=== PATIENT | female | born 1990 | race African-American/Black ===

== ENCOUNTER 2017-11-11 11:36 | Emergency (ER) | payer OTHER ==
[~2017-11-11] VITALS: Ht 149.9 cm; Wt 71.0 kg
[~2017-11-11 11:36] MED LIST: Z.0.NO CURRENT MEDS
[2017-11-11 11:40] VITALS: BP 125/91; PULSE 102; RESP 20; TEMP 98.5; O2SAT 100
[2017-11-11 12:47] LABS: BACTERIA, URINE OCC /hpf; BILIRUBIN, URINE NEG (NEG); BLOOD, URINE LARGE (NEG); GLUCOSE,URINE NEG (NEG); KETONE, URINE TRACE mg/dL (NEG); MUCUS URINE FEW /lpf (OCC); NITRITE,URINE NEG (NEG); PH, URINE 5.5 (5.0-8.5); SQUAMOUS EPITHELIAL CELL URINE 14 /hpf (0-5); URINE LEUKOCYTE ESTERASE MOD (NEG)
[2017-11-11 12:53] LABS: URINE COLOR RED (YELLW/STRAW)
[2017-11-11 13:01] LABS: AUTOMATED NEUTROPHIL # 5.8 TH/MM3 (1.8-7.7); BASOPHIL % 0.4 % (0.0-2.0); EOSINOPHIL % 0.4 % (0.0-4.0); HEMATOCRIT 41.4 % (35.0-46.0); LYMPH % 19.4 % (9.0-44.0); LYMPHOCYTE # 1.5 TH/MM3 (1.0-4.8); MEAN CELL VOLUME 88.6 FL (80.0-100.0); MEAN CORPUSCULAR HGB CONC 33.9 % (32.0-36.0); MONOCYTE # 0.4 TH/MM3 (0-0.9); NEUT % 74.8 % (16.0-70.0); PLATELET COUNT 310 TH/MM3 (150-450); RED BLOOD COUNT 4.67 MIL/MM3 (4.00-5.30); WHITE BLOOD COUNT 7.8 TH/MM3 (4.0-11.0)
[2017-11-11 13:40] LABS: ALBUMIN 4.4 GM/DL (3.4-5.0); AST (GOT) 17 U/L (15-37); BICARBONATE 25.3 MEQ/L (21.0-32.0); BLOOD UREA NITROGEN 15 MG/DL (7-18); CALCIUM 9.7 MG/DL (8.5-10.1); CHLORIDE 103 MEQ/L (98-107); CREATININE 0.71 MG/DL (0.50-1.00); GLOMERULAR FILTRATION RATE 118 ML/MIN (>89); GLUCOSE,RANDOM 103 MG/DL (74-106); SODIUM (NA) 138 MEQ/L (136-145)
[2017-11-11 13:41] LABS: ALT (GPT) 23 U/L (10-53)
[2017-11-11 13:44] LABS: ALKALINE PHOSPHATASE 123 U/L (45-117); TOTAL BILIRUBIN ADULT 0.2 MG/DL (0.2-1.0); TOTAL PROTEIN 9.2 GM/DL (6.4-8.2)
[2017-11-11] MEDS ORDERED: ACETAMINOPHEN 500 MG CPLT PO ONE (14:30)
--- NOTE | 2017-11-11 14:37 | RADRPT ---
EXAM DATE/TIME: 11/11/2017 13:18 [facility] COMPARISON: US PELVIS COMP W/TRANSVAGINAL, December 14, 2010, 17:21. INDICATIONS : Vaginal bleeding. MEDICAL HISTORY : Gastroparesis. Ovarian cysts. Ovarian cancer. SURGICAL HISTORY : Hysterectomy. Partial right ovary removed. Vaginal mass removed. ENCOUNTER: Subsequent ACUITY: 1 day PAIN SCORE: 7/10 LOCATION: Bilateral pelvis MEASUREMENTS: UTERUS: 6.2 x 3.8 x 2.7 cm ENDOMETRIAL STRIPE: 4 mm RIGHT OVARY: 3.6 x 1.5 x 1.5 cm LEFT OVARY: 3.2 x 1.7 x 1.7 cm FINDINGS: UTERUS: The myometrium has homogeneous echotexture without mass. Endometrial stripe is homogeneous in echoge nicity. RIGHT OVARY: Subcentimeter simple appearing anechoic cysts with the largest measuring up to 1.0 x 1.4 x 1.0 cm. Ri ght ovary is otherwise unremarkable. LEFT OVARY: Ovary contains no mass or significant cystic lesion. MISCELLANEOUS: Trace trace free fluid in the cul-de-sac. CONCLUSION: 1. Simple appearing right ovarian cysts measuring up to 1.4 cm. These do not require additional follo wup. 2. Trace pelvic free fluid, likely physiologic. 3. Otherwise, unremarkable ultrasound examination of the pelvis. Dequan Cat MD on November 11, 2017 at 14:29 Board Certified Radiologist. This report was verified electronically.
[2017-11-11] MEDS ORDERED: CEPH-460 PO (14:59)
--- NOTE | 2017-11-11 14:59 | PD ---
HPI Chief Complaint: Systems Analyst Problem/Complaint Time Seen by Provider: 12:09 Travel History International Travel<30 days: No Contact w/Intl Traveler<30days: No Traveled to known affect area: No History of Present Illness HPI This is a 27-year-old female who presents to the emergency department with lower abdominal pain, intermittent, moderate severity, described as cramping associated with bleeding from her vagina, in her urine and from her rectum. She says she has been having vaginal bleeding that has been going on for 2-3 weeks. She says that she started to have copious blood from her rectum. Sometimes she has blood that covers her stool. She says she has been feeling lightheaded and dizzy. She says she has a history of ovarian cancer and has had radiation and chemotherapy. She does not follow up with her coil wrapper currently. She says she has also been feeling feverish. PFSH Past Medical History Blood Disorders: No Cancer: Yes Chemotherapy: Yes (OVARIAN CANCER/2009) Diminished Hearing: No Gastrointestinal Disorders: Yes (GASTROPARESIS) Reproductive: Yes (ovarian cysts ) Radiation Therapy: Yes (2009) Influenza Vaccination: No ?: Not : 3 Miscarriage: 2 Ovarian Cysts: Yes Past Surgical History Gynecologic Surgery: Yes (VAG MASS, RUPTURED BLADDER) Hysterectomy: Yes (PARTIAL RIGHT OVARY REMOVAL PER PT.) Other Surgery: Yes (SUPRA PUBIC CATH SX. HISTORY NOW REVERSED, VAGINAL MASS REMOVAL ) Social History Alcohol Use: No Tobacco Use: No Substance Use: No Allergies-Medications (Allergen,Severity, Reaction): Coded Allergies: Iodinated Contrast- Oral and IV Dye (Unverified Allergy, Severe, 11/11/17) hives hydromorphone (Unverified Allergy, Severe, 11/11/17) full body hives ibuprofen (Unverified Allergy, Severe, 11/11/17) hives ketorolac (Unverified Allergy, Severe, "THROAT SWELLS", 11/11/17) PT DENIES TORADOL ALLERGY metoclopramide (Unverified Allergy, Severe, "THROAT SWELLING", 11/11/17) morphine (Unverified Allergy, Severe, "THROAT SWELLS", 11/11/17) ondansetron (Unverified Allergy, Severe, 11/11/17) full body hives tramadol (Unverified Allergy, Severe, 11/11/17) hypotension vancomycin (Unverified Allergy, Intermediate, Hives, 11/11/17) Uncoded Allergies: MORPHIN (Allergy, Severe, Anaphylaxis, 11/07/17) Reported Meds & Prescriptions Reported Meds & Active Scripts Active Reported No Current Meds (Miscellaneous Medication) Misc Review of Systems Except as stated in HPI: all other systems reviewed are Neg Physical Exam Narrative GENERAL:Well appearing, no acute distress SKIN: Focused skin assessment warm and dry. HEAD: Atraumatic. Normocephalic. EYES: Pupils equal and round. No injection or drainage. ENT: Moist mucous membranes NECK: Trachea midline. CARDIOVASCULAR: Regular rate and rhythm. No murmur appreciated. RESPIRATORY: Clear to auscultation. Breath sounds equal bilaterally. GASTROINTESTINAL: Abdomen soft, tender to palpation in the lower abdomen with no rebound or guarding. No blood on digital exam or on visual inspection. Pt. does have some blood around the rectum which appears to be vaginal blood. PERFECT BINDER SETTER:dark blood in the vault, coming from the cervical os. Small defect in the right side of the vagina with no obvious fistula. MUSCULOSKELETAL: No obvious deformities. NEUROLOGICAL: Awake and alert. No obvious cranial nerve deficits. Moving all extremities. PSYCHIATRIC: Appropriate mood and affect; insight and judgment normal. Data Data Last Documented VS Vital Signs Date Time Temp Pulse Resp B/P (MAP) Pulse Ox O2 Delivery O2 Flow Rate FiO2 11/11/17 11:40 98.5 102 20 125/91 (102) 100 Room Air Orders Orders Complete Blood Count With Diff (11/11/17 11:50) Comprehensive Metabolic Panel (11/11/17 11:50) Urinalysis - C+S If Indicated (11/11/17 11:50) Ed Urine Pregnancytest Poc (11/11/17 11:50) Prothrombin Time / Inr (Pt) (11/11/17 12:15) Act Partial Throm Time (Ptt) (11/11/17 12:15) Us Pelvis Comp W Transvaginal (11/11/17 ) Acetaminophen (Tylenol) (11/11/17 14:30) Labs Laboratory Tests Test 11/11/17 12:00 11/11/17 12:43 Urine Color RED Urine Turbidity CLOUDY Urine pH 5.5 Urine Specific [place] 1.022 Urine Protein 30 mg/dL Urine Glucose (UA) NEG mg/dL Urine Ketones TRACE mg/dL Urine Occult Blood LARGE Urine Nitrite NEG Urine Bilirubin NEG Urine Urobilinogen LESS THAN 2.0 MG/DL Urine Leukocyte Esterase MOD Urine RBC /hpf Urine WBC 2 /hpf Urine Squamous Epithelial Cells 14 /hpf Urine Bacteria OCC /hpf Urine Mucus FEW /lpf Microscopic Urinalysis Comment CULT NOT INDICATED White Blood Count 7.8 TH/MM3 Red Blood Count 4.67 MIL/MM3 Hemoglobin 14.0 GM/DL Hematocrit 41.4 % Mean Corpuscular Volume 88.6 FL Mean Corpuscular Hemoglobin 30.0 PG Mean Corpuscular Hemoglobin Concent 33.9 % Red Cell Distribution Width 14.0 % Platelet Count 310 TH/MM3 Mean Platelet Volume 8.0 FL Neutrophils (%) (Auto) 74.8 % Lymphocytes (%) (Auto) 19.4 % Monocytes (%) (Auto) 5.0 % Eosinophils (%) (Auto) 0.4 % Basophils (%) (Auto) 0.4 % Neutrophils # (Auto) 5.8 TH/MM3 Lymphocytes # (Auto) 1.5 TH/MM3 Monocytes # (Auto) 0.4 TH/MM3 Eosinophils # (Auto) 0.0 TH/MM3 Basophils # (Auto) 0.0 TH/MM3 CBC Comment DIFF FINAL Differential Comment Prothrombin Time 10.0 SEC Prothromb Time International Ratio 1.0 RATIO Activated Partial Thromboplast Time 28.1 SEC Blood Urea Nitrogen 15 MG/DL Creatinine 0.71 MG/DL Random Glucose 103 MG/DL Total Protein 9.2 GM/DL Albumin 4.4 GM/DL Calcium Level 9.7 MG/DL Alkaline Phosphatase 123 U/L Aspartate Amino Transf (AST/SGOT) 17 U/L Alanine Aminotransferase (ALT/SGPT) 23 U/L Total Bilirubin 0.2 MG/DL Sodium Level 138 MEQ/L Potassium Level 3.8 MEQ/L Chloride Level 103 MEQ/L Carbon Dioxide Level 25.3 MEQ/L Anion Gap 10 MEQ/L Estimat Glomerular Filtration Rate 118 ML/MIN [facility] Medical Decision Making Medical Screen Exam Complete: Yes Emergency Medical Condition: Yes Interpretation(s) Afebrile, no tachycardia, normotensive No leukocytosis Electrolytes are reassuring Coags are normal Urinalysis demonstrates a large amount of blood and some bacteria Differential Diagnosis Fistula, tumor, AVM, menstrual bleeding, anemia Narrative Course This is a 27-year-old female who presents to the emergency department with vaginal bleeding, rectal bleeding, and lower abdominal cramping that has been going on for 2-3 weeks. She says she has not had a menstrual cycle since she was treated for ovarian cancer back in 2009. She was placed on a monitor and an IV was established. Labs demonstrate a normal hemoglobin. Urinalysis which she says was a catheterized specimen demonstrates a large amount of blood. She says she has also been having hematuria. She just had a CT scan back in August in the setting of chronic pelvic pain which was reassuring. I performed a pelvic ultrasound today which demonstrates a small cyst on the right ovary. I do not appreciate an obvious fistula on exam. I do not appreciate obvious rectal bleeding and it appears most of her bleeding is coming from her vagina from the cervical os. I think she is safe for outpatient follow-up. She was given a referral to [facility]. Diagnosis Primary Impression: Vaginal bleeding Additional Impression: Hematuria Qualified Codes: R31.9 - Hematuria, unspecified Referrals: [facility] Patient Instructions: General Instructions Additional Instructions: Heavy bleeding can be caused by many things including: - One of your ovaries not releasing an egg during one or more months - Growths in the uterus called fibroids - A bleeding disorder that prevents your blood from clotting normally - Side effects of some medicines, such as some types of control or blood thinners - A problem with your thyroid (a gland that makes hormones) Return to the emergency department if you: Need to use both tampons and pads at the same time because you are bleeding so much Need to change your pad or tampon during the night Or are feeling lightheaded, weak, dizzy, have chest pain, shortness of breath or are having difficulty exerting yourself Follow up with [facility] at: [facility] [address] [place] [address] Office Hours Tuesday - 9:00 am - 5:30 pm Tuesday 8:00 am - 12:00 pm Teen Tuesdays 4:00 - 6:30 pm Med/Other Pt SpecificInfo: Prescription(s) given Scripts Cephalexin (Keflex) 500 Mg Cap 500 MG PO Q12H for Infection for 7 Days, #14 CAP 0 Refills Prov: Peggy Oliva MD 11/11/17 Disposition: 01 DISCHARGE HOME Condition: Stable Peggy Oliva MD Nov 11, 2017 14:59
[2017-11-11 15:17] VITALS: BP 118/78
== END 2017-11-11 15:55 | disposition home or self-care (01) ==
LOC: NEPD 11:36
DX: N93.9 Abnormal uterine and vaginal bleeding, unspecified (principal); R31.9 Hematuria, unspecified; N83.201 Unspecified ovarian cyst, right side; Z85.43 Personal history of malignant neoplasm of ovary; Z88.5 Allergy status to narcotic agent; Z88.6 Allergy status to analgesic agent; Z88.1 Allergy status to other antibiotic agents
CPT/HCPCS: 76830; 76856; 80053; 81001; 84703; 85025; 85610; 85730; 99284

== ENCOUNTER 2017-11-26 22:04 | Emergency (ER) | payer SELFPAY ==
[~2017-11-26] VITALS: Ht 149.9 cm; Wt 70.0 kg
[~2017-11-26 22:04] MED LIST changes: +CEPH-460 PO
[2017-11-26 22:07] VITALS: BP 129/84; PULSE 83; RESP 16; TEMP 98.8; O2SAT 96
[2017-11-26] MEDS ORDERED: SODIUM CHLOR 0.9% 1000 ML INJ 1,000 ML IV SCH (22:26)
[2017-11-26] MEDS ORDERED: SODIUM CHLORIDE 0.9% FLUSH 10 ML FLUSH IV FLUSH PRN (22:30)
[2017-11-26 23:00] VITALS: BP 132/90; PULSE 90; RESP 18; O2SAT 100
[2017-11-26 23:09] LABS: AUTOMATED NEUTROPHIL # 6.9 TH/MM3 (1.8-7.7); BACTERIA, URINE RARE /hpf; BASOPHIL % 0.3 % (0.0-2.0); BILIRUBIN, URINE NEG (NEG); BLOOD, URINE NEG (NEG); EOSINOPHIL % 0.3 % (0.0-4.0); GLUCOSE,URINE NEG (NEG); HEMATOCRIT 41.5 % (35.0-46.0); KETONE, URINE 40 mg/dL (NEG); LYMPH % 17.7 % (9.0-44.0); LYMPHOCYTE # 1.6 TH/MM3 (1.0-4.8); MEAN CELL VOLUME 87.3 FL (80.0-100.0); MEAN CORPUSCULAR HEMOGLOBIN 29.6 PG (27.0-34.0); MEAN CORPUSCULAR HGB CONC 33.8 % (32.0-36.0); MEAN PLATELET VOLUME 7.6 FL (7.0-11.0); MONO % 4.3 % (0.0-8.0); MONOCYTE # 0.4 TH/MM3 (0-0.9); MUCUS URINE MOD /lpf (OCC); NEUT % 77.4 % (16.0-70.0); NITRITE,URINE NEG (NEG); PLATELET COUNT 364 TH/MM3 (150-450); RED BLOOD COUNT 4.75 MIL/MM3 (4.00-5.30); RED CELL DISTRIBUTION WIDTH 13.9 % (11.6-17.2); SQUAMOUS EPITHELIAL CELL URINE 4 /hpf (0-5); URINE COLOR YELLOW (YELLW/STRAW); URINE LEUKOCYTE ESTERASE NEG (NEG); WHITE BLOOD COUNT 8.9 TH/MM3 (4.0-11.0)
--- NOTE | 2017-11-26 23:19 | RADRPT ---
EXAM DATE/TIME: 11/26/2017 23:06 [facility] COMPARISON: No previous studies available for comparison. INDICATIONS : Right flank pain. ORAL CONTRAST: No oral contrast ingested. RADIATION DOSE: 8.28 CTDIvol (mGy) MEDICAL HISTORY : None SURGICAL HISTORY : None. ENCOUNTER: Initial ACUITY: 1 day PAIN SCALE: 7/10 LOCATION: Right flank TECHNIQUE: Volumetric scanning of the abdomen and pelvis was performed. Using automated exposure control and ad justment of the mA and/or kV according to patient size, radiation dose was kept as low as reasonably achievable to obtain optimal diagnostic quality images. DICOM format image data is available electro nically for review and comparison. FINDINGS: LOWER LUNGS: The visualized lower lungs are clear. LIVER: Homogeneous density without lesion. There is no dilation of the biliary tree. No calcified gallston es. SPLEEN: Normal size without lesion. PANCREAS: Within normal limits. KIDNEYS: Normal in size and shape. There is no mass, stone, or hydronephrosis. ADRENAL GLANDS: Within normal limits. VASCULAR: There is no aortic aneurysm. BOWEL/MESENTERY: The stomach, small bowel, and colon demonstrate no acute abnormality. There is no free intraperitone al air or fluid. ABDOMINAL WALL: Within normal limits. RETROPERITONEUM: There is no lymphadenopathy. BLADDER: No wall thickening or mass. REPRODUCTIVE: Within normal limits. INGUINAL: There is no lymphadenopathy or hernia. MUSCULOSKELETAL: Within normal limits for patient age. CONCLUSION: 1. No acute findings. Specifically no renal calculi or obstructive uropathy. Elio Phan MD on November 26, 2017 at 23:13 Board Certified Radiologist. This report was verified electronically.
[2017-11-26 23:23] LABS: ALBUMIN 4.5 GM/DL (3.4-5.0); ALT (GPT) 28 U/L (10-53); AST (GOT) 24 U/L (15-37); BICARBONATE 25.8 MEQ/L (21.0-32.0); BLOOD UREA NITROGEN 10 MG/DL (7-18); CALCIUM 9.5 MG/DL (8.5-10.1); CHLORIDE 102 MEQ/L (98-107); CREATININE 0.68 MG/DL (0.50-1.00); GLOMERULAR FILTRATION RATE 124 ML/MIN (>89); GLUCOSE,RANDOM 90 MG/DL (74-106); SODIUM (NA) 136 MEQ/L (136-145)
[2017-11-26 23:25] LABS: ALKALINE PHOSPHATASE 119 U/L (45-117); TOTAL BILIRUBIN ADULT 0.4 MG/DL (0.2-1.0); TOTAL PROTEIN 9.2 GM/DL (6.4-8.2)
[2017-11-27] MEDS ORDERED: ALUMINUM/MAGNESIUM/SIMETH 30 ML CUP PO ONE (00:30)
[2017-11-27] MEDS ORDERED: LIDOCAINE VISCOUS 2% SOLN 15 ML UDC SWISH-SWAL ONE (00:30)
[2017-11-27] MEDS ORDERED: FAMO1TAB37 PO (01:31)
[2017-11-27] MEDS ORDERED: CARA1TAB6 PO (01:31)
--- NOTE | 2017-11-27 01:31 | PD ---
HPI . Abdominal pain Chief Complaint: Abdominal Pain Time Seen by Provider: 22:24 Travel History International Travel<30 days: No Contact w/Intl Traveler<30days: No Traveled to known affect area: No History of Present Illness HPI 27-year-old female complains of having right-sided abdominal pain upper and lower the past 2 days. Patient notes severe pain now. Patient notes nausea no vomiting no diarrhea. Denies flank pain denies pain upon urination denies hematuria. Patient has no vaginal discharge or bleeding. Also denies chest pain or shortness of breath. Patient has no change in pain with food or lying supine. No known exacerbating or relieving factors. PFSH Past Medical History Narrative Medical Past medical history reviewed. Patient states she had ovarian cancer treated with chemotherapy and radiation, nonsurgical treatment Blood Disorders: No Cancer: Yes Chemotherapy: Yes (OVARIAN CANCER/2009) Diminished Hearing: No Gastrointestinal Disorders: Yes (GASTROPARESIS) Reproductive: Yes (ovarian cysts ) Radiation Therapy: Yes (2009) Tetanus Vaccination: Unknown Influenza Vaccination: No ?: Not LMP: 10/31/17 : 3 Miscarriage: 2 Ovarian Cysts: Yes Past Surgical History Gynecologic Surgery: Yes (VAG MASS, RUPTURED BLADDER) Hysterectomy: Yes (PARTIAL RIGHT OVARY REMOVAL PER PT.) Other Surgery: Yes (SUPRA PUBIC CATH SX. HISTORY NOW REVERSED, VAGINAL MASS REMOVAL ) Social History Alcohol Use: No Tobacco Use: No Substance Use: No Allergies-Medications (Allergen,Severity, Reaction): Coded Allergies: Iodinated Contrast- Oral and IV Dye (Unverified Allergy, Severe, 11/26/17) hives hydromorphone (Unverified Allergy, Severe, 11/26/17) full body hives ibuprofen (Unverified Allergy, Severe, 11/26/17) hives ketorolac (Unverified Allergy, Severe, "THROAT SWELLS", 11/26/17) PT DENIES TORADOL ALLERGY metoclopramide (Unverified Allergy, Severe, "THROAT SWELLING", 11/26/17) morphine (Unverified Allergy, Severe, "THROAT SWELLS", 11/26/17) ondansetron (Unverified Allergy, Severe, 11/26/17) full body hives tramadol (Unverified Allergy, Severe, 11/26/17) hypotension vancomycin (Unverified Allergy, Intermediate, Hives, 11/26/17) Uncoded Allergies: MORPHIN (Allergy, Severe, Anaphylaxis, 11/07/17) Reported Meds & Prescriptions Reported Meds & Active Scripts Active No Active Prescriptions or Reported Medications Narrative Medication Extensive allergy list reviewed. Patient states feeling pain medication she can take his hydrocodone Medications reviewed Review of Systems Except as stated in HPI: all other systems reviewed are Neg General / Constitutional: No: Fever Eyes: No: Visual changes HENT: No: Headaches Cardiovascular: No: Chest Pain or Discomfort Respiratory: No: Shortness of Breath Gastrointestinal: Positive: Abdominal Pain, No: Nausea, Diarrhea, Hematemesis, Hematochezia, Constipation Genitourinary: No: Urgency, Frequency, Dysuria, Hematuria Musculoskeletal: No: Pain Skin: No Rash Neurologic: No: Weakness Psychiatric: No: Depression Endocrine: No: Polydipsia Hematologic/Lymphatic: No: Easy Bruising Physical Exam Narrative GENERAL: Awake alert oriented 3 no acute distress SKIN: Warm and dry. Color is normal diaphoresis cyanosis or pallor HEAD: Atraumatic. Normocephalic. EYES: Pupils equal and round. No scleral icterus. No injection or drainage. ENT: No nasal bleeding or discharge. Mucous membranes pink and moist. NECK: Trachea midline. No JVD. Supple CARDIOVASCULAR: Regular rate and rhythm. No murmurs rubs gallops RESPIRATORY: No accessory muscle use. Clear to auscultation. Breath sounds equal bilaterally. GASTROINTESTINAL: Abdomen soft, tender right upper quadrant and right lower quadrant, negative Rovsing's, voluntary guarding no rebound, nondistended. Hepatic and splenic margins not palpable. She is morbidly obese, somewhat difficult exam. No CVA tenderness. MUSCULOSKELETAL: Extremities without clubbing, cyanosis, or edema. No obvious deformities. NEUROLOGICAL: Awake and alert. No obvious cranial nerve deficits. Motor grossly within normal limits. Five out of 5 muscle strength in the arms and legs. Normal speech. PSYCHIATRIC: Appropriate mood and affect; insight and judgment normal. Data Data Last Documented VS Vital Signs Date Time Temp Pulse Resp B/P (MAP) Pulse Ox O2 Delivery O2 Flow Rate FiO2 11/26/17 23:00 90 18 132/90 (104) 100 Room Air 11/26/17 22:07 98.8 Orders Orders Beta Hcg (Quant/Titer) (11/26/17 22:26) Complete Blood Count With Diff (11/26/17 22:26) Comprehensive Metabolic Panel (11/26/17 22:26) Lipase (11/26/17 22:26) Urinalysis - C+S If Indicated (11/26/17 22:26) Ct Abd/Pel W/O Iv Contrast (11/26/17 22:26) Iv Access Insert/Monitor (11/26/17 22:26) Ecg Monitoring (11/26/17 22:26) Oximetry (11/26/17 22:26) Sodium Chlor 0.9% 1000 Ml Inj (Ns 1000 M (11/26/17 22:26) Sodium Chloride 0.9% Flush (Ns Flush) (11/26/17 22:30) Al-Mag Hy-Si 40-40-4 Mg/Ml Liq (Mag-Al P (11/27/17 00:30) Lidocaine 2% Viscous (Xylocaine 2% Visco (11/27/17 00:30) Labs Laboratory Tests Test 11/26/17 22:40 White Blood Count 8.9 TH/MM3 Red Blood Count 4.75 MIL/MM3 Hemoglobin 14.0 GM/DL Hematocrit 41.5 % Mean Corpuscular Volume 87.3 FL Mean Corpuscular Hemoglobin 29.6 PG Mean Corpuscular Hemoglobin Concent 33.8 % Red Cell Distribution Width 13.9 % Platelet Count 364 TH/MM3 Mean Platelet Volume 7.6 FL Neutrophils (%) (Auto) 77.4 % Lymphocytes (%) (Auto) 17.7 % Monocytes (%) (Auto) 4.3 % Eosinophils (%) (Auto) 0.3 % Basophils (%) (Auto) 0.3 % Neutrophils # (Auto) 6.9 TH/MM3 Lymphocytes # (Auto) 1.6 TH/MM3 Monocytes # (Auto) 0.4 TH/MM3 Eosinophils # (Auto) 0.0 TH/MM3 Basophils # (Auto) 0.0 TH/MM3 CBC Comment DIFF FINAL Differential Comment Urine Color YELLOW Urine Turbidity HAZY Urine pH 6.0 Urine Specific [place] 1.019 Urine Protein TRACE mg/dL Urine Glucose (UA) NEG mg/dL Urine Ketones 40 mg/dL Urine Occult Blood NEG Urine Nitrite NEG Urine Bilirubin NEG Urine Urobilinogen LESS THAN 2.0 MG/DL Urine Leukocyte Esterase NEG Urine RBC 1 /hpf Urine WBC 3 /hpf Urine Squamous Epithelial Cells 4 /hpf Urine Bacteria RARE /hpf Urine Mucus MOD /lpf Microscopic Urinalysis Comment CULT NOT INDICATED Blood Urea Nitrogen 10 MG/DL Creatinine 0.68 MG/DL Random Glucose 90 MG/DL Total Protein 9.2 GM/DL Albumin 4.5 GM/DL Calcium Level 9.5 MG/DL Alkaline Phosphatase 119 U/L Aspartate Amino Transf (AST/SGOT) 24 U/L Alanine Aminotransferase (ALT/SGPT) 28 U/L Total Bilirubin 0.4 MG/DL Sodium Level 136 MEQ/L Potassium Level 3.6 MEQ/L Chloride Level 102 MEQ/L Carbon Dioxide Level 25.8 MEQ/L Anion Gap 8 MEQ/L Estimat Glomerular Filtration Rate 124 ML/MIN Lipase 50 U/L Human Chorionic Gonadotropin, Quant LESS THAN 1 MIU/ML MDM Medical Decision Making Medical Screen Exam Complete: Yes Emergency Medical Condition: Yes Medical Record Reviewed: Yes Differential Diagnosis Abdominal pain, cholecystitis, choledocholithiasis, gastritis, colitis, acute appendicitis, ovarian cyst Narrative Course Patient's laboratory examinations reviewed, no significant abnormalities. Patient's CT abdomen and pelvis reviewed, no acute abdomen allergies noted as per radiology. Patient was given Maalox lidocaine by mouth for probable gastritis, patient was noncompliant with administration of medication. Diagnosis Primary Impression: Abdominal pain Qualified Codes: R10.11 - Right upper quadrant pain Patient Instructions: Abdominal Pain (ED), General Instructions Additional Instructions: Suggest bland low-fat diet. Antacids as prescribed. [id number] calcium antacid such as Tums as directed as needed. Follow-up with your doctor. Return for worsening Scripts Sucralfate (Carafate) 1 Gram Tab 1 GM PO TID for Ulcer Prevention, #90 TAB 0 Refills On empty stomach Prov: Vincent Kauffman MD 11/27/17 Famotidine (Pepcid) 20 Mg Tab 20 MG PO BID, #60 TAB 0 Refills Prov: Vincent Kauffman MD 11/27/17 Disposition: DISCHARGE HOME Condition: Stable Vincent Kauffman MD Nov 27, 2017 01:31
[2017-11-27 01:33] VITALS: BP 124/88
== END 2017-11-27 01:43 | disposition home or self-care (01) ==
LOC: NEPC 22:04
DX: R10.11 Right upper quadrant pain (principal); K31.84 Gastroparesis; Z91.14 Patient's other noncompliance with medication regimen; Z88.6 Allergy status to analgesic agent; Z88.5 Allergy status to narcotic agent
CPT/HCPCS: 74176; 80053; 81001; 83690; 84702; 85025; 96360; 96361; 99284; J7030